=== PATIENT | female | born 1950 | race Caucasian/White ===

== ENCOUNTER → 2016-07-23 | Outpatient (CLI) | payer OTHER, BC ==
--- NOTE | 2016-07-23 16:13 | DIAGNOSTIC IMAGING REPORT ---
RIGHT KNEE 3 VIEWS CLINICAL HISTORY: Right knee pain TRAUMA COMPARISON: None. DISCUSSION: 3 views reveal no acute fractures. There are minor degenerative changes. IMPRESSION: No acute fractures or dislocations are visualized. Electronically signed by: Edwin Galindo M.D. 07/23/2016 4:12 PM Dictated Date/Time: 07/23/2016 4:10 PM
--- NOTE | 2016-07-23 16:15 | DIAGNOSTIC IMAGING REPORT ---
LEFT HAND MIN 3 VIEWS ROUTINE CLINICAL HISTORY: HAND PAIN trauma. Pain. COMPARISON: None. DISCUSSION: Mild degenerative change throughout all major osseous structures. Bony mineralization is slightly diminished. No well-defined evidence for fracture. There is no evidence for soft tissue swelling. IMPRESSION: Mild to moderate osteoarthritic change. No well-defined acute bony abnormality. Electronically signed by: Octavio Frazier M.D. 07/23/2016 4:14 PM Dictated Date/Time: 07/23/2016 4:10 PM
--- NOTE | 2016-07-23 16:15 | DIAGNOSTIC IMAGING REPORT ---
LEFT WRIST 5 VIEWS CLINICAL HISTORY: Fall with wrist pain. FINDINGS: 5 views of the left wrist are obtained. No prior studies are available for comparison at the time of dictation. The skeletal structures are osteopenic. There is no radiographic evidence of fracture. The joint spaces of the wrist appear preserved. The overlying soft tissues are within normal limits. IMPRESSION: No acute bony abnormality is seen in the left wrist. Electronically signed by: Juwan Youngblood M.D. 07/23/2016 4:14 PM Dictated Date/Time: 07/23/2016 4:10 PM
== END | disposition home or self-care (01) ==
LOC: C.RAD1850 15:42
PROVIDERS: ATTEND Nurse Practitioner Adult Health
DX: M25.532 Pain in left wrist (principal); M25.561 Pain in right knee

== ENCOUNTER → 2016-09-12 | Outpatient (CLI) | payer OTHER, BC ==
--- NOTE | 2016-09-12 13:52 | DIAGNOSTIC IMAGING REPORT ---
RIGHT KNEE 3 VIEWS CLINICAL HISTORY: MEDIAL KNEE PAIN Right COMPARISON: None. DISCUSSION: The bones and joint spaces appear intact. There is no evidence of fracture, dislocation or bony disease. There is no evidence for soft tissue swelling. IMPRESSION: Negative study. Electronically signed by: Octavio Frazier M.D. 09/12/2016 1:51 PM Dictated Date/Time: 09/12/2016 1:51 PM
== END | disposition home or self-care (01) ==
LOC: C.RAD1850 13:34
PROVIDERS: ATTEND Nurse Practitioner Adult Health
DX: M25.561 Pain in right knee (principal)

== ENCOUNTER → 2017-06-03 | Outpatient (CLI) | payer BC ==
--- NOTE | 2017-06-04 16:01 | MAMMOGRAPHY REPORT ---
BILATERAL DIGITAL SCREENING MAMMOGRAM TOMOSYNTHESIS WITH CAD: 06/03/2017 CLINICAL HISTORY: Routine screening. TECHNIQUE: Breast tomosynthesis in addition to standard 2D mammography was performed. Current study was also evaluated with a Computer Aided Detection (CAD) system. COMPARISON: Comparison is made to exams dated: 06/20/2016 mammogram, 06/20/2016 aspiration, 06/11/20 16 ultrasound, 05/28/2016 mammogram, 06/17/2012 mammogram - [facility], and 4 mammogram. BREAST COMPOSITION: There are scattered areas of fibroglandular density in both breasts. FINDINGS: The parenchymal pattern is unchanged. No developing mass, architectural distortion or clus ter of suspicious microcalcifications is seen in either breast. IMPRESSION: ACR BI-RADS CATEGORY 2: BENIGN There is no mammographic evidence of malignancy. A 1 year screening mammogram is recommended. The pa tient will receive written notification of the results. Approximately 10% of breast cancers are not detected with mammography. A negative mammographic report should not delay biopsy if a clinically suggestive mass is present. Gayatri Sidhu M.D. ay/:06/03/2017 16:21:30 Photograph Tinter: Abel RODRIGUES(Amalia)(Aga), [facility] letter sent: Normal 1/2 BI-RADS Code: ACR BI-RADS Category 2: Benign
== END | disposition home or self-care (01) ==
LOC: C.MAMM 15:28
PROVIDERS: ATTEND Family Medicine
DX: Z12.31 Encounter for screening mammogram for malignant neoplasm of breast (principal)

== ENCOUNTER → 2017-09-09 | Outpatient (CLI) | payer OTHER | END | disposition home or self-care (01) | LOC: C.MAMM 08:01 | PROVIDERS: ATTEND Family Medicine | DX: Z78.0 Asymptomatic menopausal state (principal); Z13.820 Encounter for screening for osteoporosis; M85.88 Other specified disorders of bone density and structure, other site ==